=== PATIENT | male | born 1975 | race African-American/Black ===

== ENCOUNTER 2021-06-28 14:48 | Emergency (ER) | payer OTHER ==
[~2021-06-28] VITALS: Ht 188 cm; Wt 104.3 kg
[2021-06-28] MEDS ORDERED: PRILOSEC OTC20 MG PO (21:39)
== END 2021-06-28 21:50 | disposition home or self-care (01) ==
LOC: ER 14:48
DX: K21.9 Gastro-esophageal reflux disease without esophagitis (principal); K30 Functional dyspepsia; Z53.29 Procedure and treatment not carried out because of patient's decision for other reasons